=== PATIENT | female | born 1970 | race Caucasian/White ===

== ENCOUNTER 2016-07-02 14:54 | Emergency (ER) | payer BC, MEDICARE ==
[2016-07-02 15:18] VITALS: BP 109/65
--- NOTE | 2016-07-02 15:39 | UC ---
Throat Pain/Nasal Moo HPI - HPI Summary HPI Summary: complaint of cough and nasal congestion that started approx 7 days ago sore throat, headaches cough- sometimes productive slight sinus pressure in her forehead for the last 3 days which is worsening denies fever and chills has been using cough drops without relief - History of Current Complaint Chief Complaint: UCGeneralIllness Stated Complaint: COUGH Time Seen by Provider: 07/02/16 15:33 Hx Last Menstrual Period: current - Allergies/Home Medications Allergies/Adverse Reactions: Allergies Allergy/AdvReac Type Severity Reaction Status Date / Time Oxycodone [From Percocet] Allergy Hives Verified 07/02/16 15:19 BEES Allergy Intermediate Hives/Diff. Uncoded 07/02/16 15:19 Breathing/I tching PMH/Surg Hx/FS Hx/Imm Hx Previously Healthy: Yes Endocrine History Of: Denies: Diabetes Comment Only: Thyroid Disease - MONITORING LEVELS AT THIS POINT PER PATIENT Cardiovascular History Of: Denies: Hypertension, Pacemaker/ICD GI/ History Of: Denies: Renal Disease Psychological History Of: Reports: Anxiety - ON MEDICATION FOR, Depression - ON MEDICATION FOR - Surgical History Surgical History: Yes Surgery Procedure, Year, and Place: hangmans fracture repair - 2007. FIRST 2 CSP SURGERIES- [facility] 2007,2010. APPENDECTOMY MANY YEARS AGO 01/07/14. RIGHT THIGH EXC HEMATOMA WITH DRAIN PLACEMENT AND REMOVED. shoulder, hand surgery - Family History Known Family History: Positive: None Negative: Cardiac Disease, Hypertension, Diabetes - Social History Lives: With Family Alcohol Use: None Substance Use Type: None Smoking Status (MU): Current Every Day Smoker Amount Used/How Often: currently 1/2 PPD, was 1 PPD X 20 YEARS Have You Smoked in the Last Year: Yes When Did the Patient Quit Smoking/Using Tobacco: PACK/DAY Household Exposure Type: Cigarettes Cessation Counseling: Patient Advised to Stop - Immunization History Most Recent Influenza Vaccination: 2013 Most Recent Tetanus Shot: PT NOT SURE Most Recent Pneumonia Vaccination: DOES NOT RECEIVE Review of Systems Constitutional: Negative Skin: Negative Eyes: Negative ENT: Sore Throat, Nasal Discharge Respiratory: Cough Cardiovascular: Negative Gastrointestinal: Negative Genitourinary: Negative Motor: Negative Neurovascular: Negative Musculoskeletal: Negative Neurological: Negative Psychological: Negative All Other Systems Reviewed And Are Negative: Yes Physical Exam Triage Information Reviewed: Yes Appearance: No Pain Distress, Well-Nourished Vital Signs: Initial Vital Signs Temp 97.7 F 07/02/16 15:15 Pulse 86 07/02/16 15:15 Resp 16 07/02/16 15:15 BP 109/65 07/02/16 15:15 Pulse Ox 94 07/02/16 15:15 Vital Signs Reviewed: Yes Eyes: Positive: Conjunctiva Clear ENT: Positive: Pharyngeal erythema, Nasal congestion, TMs normal, Other: - frontal sinus tenderness. Negative: TM red Neck: Positive: No Lymphadenopathy Respiratory: Positive: Lungs clear, Normal breath sounds, No respiratory distress Cardiovascular: Positive: RRR, No Murmur Abdomen Description: Positive: Nontender, Soft Bowel Sounds: Positive: Present Musculoskeletal: Positive: No Edema Neurological: Positive: Alert Psychological Exam: Normal Skin Exam: Normal Throat Pain/Nasal Course/Dx - Differential Dx/Diagnosis Differential Diagnosis/HQI/PQRI: Sinusitis, URI Provider Diagnoses: sinusitis Discharge - Discharge Plan Condition: Stable Disposition: HOME Prescriptions: Amoxicillin/Clavulanate TAB* [Augmentin TAB 875*] 875 mg PO BID #20 tab Patient Education Materials: Sinusitis (ED) Referrals: Justo Carpenter MD [Primary Care Provider] - Additional Instructions: Please take antibiotic as directed. Increase fluids and rest Take acetaminophen for fever or pain Please review your discharge instructions. If your symptoms do not improve please call your primary care provider or return to urgent care.
== END 2016-07-02 15:45 | disposition home or self-care (01) ==
LOC: UCEAST 14:54
DX: J32.9 Chronic sinusitis, unspecified (principal); Z88.5 Allergy status to narcotic agent; F17.210 Nicotine dependence, cigarettes, uncomplicated
CPT/HCPCS: 99212; G0463